=== PATIENT | male | born 1990 | race American Indian/Alaskan Native ===

== ENCOUNTER 2020-08-23 11:13 | Emergency (ER) | payer SELFPAY ==
[2020-08-23] MEDS ORDERED: TETRACAINE 0.5% OPHTH SOLN 4ML OU ONE (11:35)
[2020-08-23] MEDS ORDERED: BUTALB/ACETAMINOPHEN/CAFFEINE TAB PO ONE (11:35)
[2020-08-23] MEDS ORDERED: FLUORESCEIN 1 MG STRIP OP ONE (11:35)
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
--- NOTE | 2020-08-23 12:55 | Cat Scan Report ---
CT head/brain wo con INDICATION / CLINICAL INFORMATION: 30 years Male; head injury. TECHNIQUE: Routine CT head without contrast. All CT scans at this location are performed using CT dos e reduction for ALARA by means of automated exposure control. COMPARISON: None. FINDINGS: BRAIN / INTRACRANIAL CONTENTS: The brain proper, appears to demonstrate appropriate attenuation. The ventricular system is within normal limits in size and configuration. There is no CT evidence of acut e intracranial hemorrhage or significant mass effect. ORBITS: No significant abnormality of visualized orbits. SINUSES / MASTOIDS: There is scattered opacification and mucosal thickening within the ethmoid air ce lls. There is also mild to moderate opacification of the sphenoid sinuses with air-fluid levels. CRANIOCERVICAL JUNCTION: No significant abnormality. ADDITIONAL FINDINGS: None. IMPRESSION: 1. There is no CT evidence of acute intracranial process. 2. There is ethmoid and sphenoid sinus inflammatory disease as described. Signer Name: Jassi Moreno MD Signed: 08/23/2020 12:50 PM Workstation Name: [id number]
[2020-08-23 14:47] VITALS: BP 132/70
== END 2020-08-23 13:00 | disposition home or self-care (01) ==
LOC: ED 11:13
DX: S09.90XA Unspecified injury of head, initial encounter (principal); H57.89 Other specified disorders of eye and adnexa; Z79.899 Other long term (current) drug therapy; W22.8XXA Striking against or struck by other objects, initial encounter; Y93.89 Activity, other specified; Y92.89 Other specified places as the place of occurrence of the external cause; Y99.0 Civilian activity done for income or pay
CPT/HCPCS: 70450; 99283

== ENCOUNTER 2021-11-20 08:35 | Emergency (ER) | payer SELFPAY ==
[2021-11-20] MEDS ORDERED: SODIUM CHLORIDE 0.9% 1000 ML 1,000 ML IV ONE (09:07)
--- NOTE | 2021-11-20 09:29 | Emergency Department Report ---
ED Abdominal Pain HPI - General Chief Complaint: Abdominal Pain Stated Complaint: POSSIBLE KIDNEY STONES Time Seen by Provider: 11/20/21 09:04 Source: patient, EMS Mode of arrival: Ambulatory Limitations: No Limitations - History of Present Illness Initial Comments: 31-year-old black male with past medical history of kidney stones presents to the emergency department for evaluation of right flank pain that radiates down to his right lower quadrant that started last night. He states that pain was 10 out of 10 and associated with some nausea and vomiting. He denies fever, dysuria, diarrhea, and penile discharge. He states that pain feels similar to the pain he had last year when he had a kidney stone. MD Complaint: abdominal pain, flank pain -: Sudden, Last night Location: R flank Radiation: RLQ Migration to: no migration Severity scale (0 -10): 8 Quality: aching Consistency: intermittent Improves With: medication Worsens With: other (Urination) Associated Symptoms: nausea, vomiting, dysuria. denies: diarrhea, fever, chills, hematemesis, hematochezia, melena, hematuria, anorexia, syncope - Related Data Previous Rx's Medication Instructions Recorded Last Taken Type Butalb/Acetaminophen/Caffeine 1 cap PO Q8HR PRN #12 cap 08/23/20 Unknown Rx [Fioricet 50-300-40 mg CAP] Erythromycin [Erythromycin Ophth 1 applicatio OD QID 7 Days #1 tube 08/23/20 Unknown Rx Oint] Acetaminophen/Codeine [Tylenol 1 tab PO Q6H PRN #12 tab 11/20/21 Unknown Rx /Codeine # 3 tab] Ketorolac [Toradol] 10 mg PO Q6H PRN #12 tab 11/20/21 Unknown Rx Ondansetron [Zofran Odt] 4 mg PO Q8HR PRN #12 tab.rapdis 11/20/21 Unknown Rx Tamsulosin [Flomax] 0.4 mg PO QPM #15 cap 11/20/21 Unknown Rx cephALEXin [Keflex] 500 mg PO BID #14 cap 11/20/21 Unknown Rx Allergies Allergy/AdvReac Type Severity Reaction Status Date / Time No Known Allergies Allergy Unverified 08/23/20 11:29 ED Review of Systems ROS: Stated complaint: POSSIBLE KIDNEY STONES Other details as noted in HPI Comment: All other systems reviewed and negative Constitutional: denies: chills, fever, weakness ENT: denies: congestion Respiratory: denies: orthopnea, shortness of breath, SOB with exertion, SOB at rest, stridor, wheezing Cardiovascular: denies: chest pain, palpitations, dyspnea on exertion, orthopnea, edema, syncope, paroxysmal nocturnal dyspnea Gastrointestinal: abdominal pain, nausea, vomiting. denies: diarrhea, hematemesis, melena Genitourinary: dysuria. denies: urgency, frequency, hematuria, discharge, testicular pain Musculoskeletal: back pain Skin: denies: rash, lesions ED Past Medical Hx - Past Medical History Previous Medical History?: Yes Hx Hypertension: Yes - Surgical History Past Surgical History?: No - Social History Smoking Status: Never Smoker Substance Use Type: None - Medications Home Medications: Home Medications Medication Instructions Recorded Confirmed Last Taken Type Butalb/Acetaminophen/Caffeine 1 cap PO Q8HR PRN #12 cap 08/23/20 Unknown Rx [Fioricet 50-300-40 mg CAP] Erythromycin [Erythromycin Ophth 1 applicatio OD QID 7 Days #1 tube 08/23/20 Unknown Rx Oint] Acetaminophen/Codeine [Tylenol 1 tab PO Q6H PRN #12 tab 11/20/21 Unknown Rx /Codeine # 3 tab] Ketorolac [Toradol] 10 mg PO Q6H PRN #12 tab 11/20/21 Unknown Rx Ondansetron [Zofran Odt] 4 mg PO Q8HR PRN #12 tab.rapdis 11/20/21 Unknown Rx Tamsulosin [Flomax] 0.4 mg PO QPM #15 cap 11/20/21 Unknown Rx cephALEXin [Keflex] 500 mg PO BID #14 cap 11/20/21 Unknown Rx ED Physical Exam - General Limitations: No Limitations General appearance: alert, in no apparent distress - Head Head exam: Present: atraumatic, normocephalic - Eye Eye exam: Present: normal appearance. Absent: conjunctival injection - Neck Neck exam: Present: normal inspection, full ROM. Absent: tenderness, lymphadenopathy - Respiratory Respiratory exam: Present: normal lung sounds bilaterally. Absent: respiratory distress, wheezes, rales, rhonchi, stridor, chest wall tenderness - Cardiovascular Cardiovascular Exam: Present: regular rate, normal heart sounds - GI/Abdominal GI/Abdominal exam: Present: soft, tenderness (Right lower quadrant), normal nima wel sounds. Absent: distended, guarding, rebound, rigid - Extremities Exam Extremities exam: Present: normal inspection, normal capillary refill. Absent: pedal edema, joint swelling, calf tenderness - Back Exam Back exam: Present: normal inspection, tenderness (Right lower), CVA tenderness (R). Absent: vertebral tenderness - Neurological Exam Neurological exam: Present: alert, oriented X3, normal gait - Psychiatric Psychiatric exam: Present: normal affect, normal mood - Skin Skin exam: Present: warm, dry, intact, normal color ED Course Vital Signs 11/20/21 08:38 Temperature 98.7 F Pulse Rate 72 Respiratory 18 Rate Blood Pressure 180/80 O2 Sat by Pulse 99 Oximetry ED Medical Decision Making - Lab Data Result diagrams: 11/20/21 Unknown 11/20/21 Unknown - Radiology Data Radiology results: report reviewed, image reviewed CT abdomen and pelvis without contrast: FINDINGS: LOWER CHEST: No significant abnormality. LIVER: No significant abnormality. GALLBLADDER: No significant abnormality. BILE DUCTS: No significant abnormality. PANCREAS: No significant abnormality. SPLEEN: No significant abnormality. ADRENALS: No significant abnormality. RIGHT KIDNEY / URETER: 3 mm stone at the right ureterovesical junction with mild right hydroureteronephrosis and perinephric stranding. 2 mm nonobstructing stone in the lower pole. LEFT KIDNEY / URETER: 2 mm nonobstructing stone in the mid kidney. No ureteral stone or hydronephrosis. STOMACH / SMALL BOWEL: No significant abnormality. COLON: No significant abnormality. APPENDIX: No significant abnormality. PERITONEUM: No free fluid. No free air. No fluid collection. LYMPH NODES: No significant adenopathy. AORTA / ARTERIES: No significant abnormality. IVC / VEINS: No significant abnormality. URINARY BLADDER: No significant abnormality. REPRODUCTIVE ORGANS: No significant abnormality. ADDITIONAL FINDINGS: None. SKELETAL SYSTEM: No significant abnormality. IMPRESSION: 1. 3 mm stone at the right ureterovesical junction with mild right hydroureteronephrosis. 2. Bilateral nephrolithiasis. - Medical Decision Making 31-year-old black male with past medical history of kidney stones presents to the emergency department for evaluation of right flank pain that radiates down to his right lower quadrant that started last night. He states that pain was 10 out of 10 and associated with some nausea and vomiting. He denies fever, dysuria, diarrhea, and penile discharge. He states that pain feels similar to the pain he had last year when he had a kidney stone. Physical exam unremarkable. Labs positive for elevated LFTs, but acute hepatitis panel and lipase within normal limits. CT positive for kidney stones bilaterally including 3 mm stone to the right UVJ with mild right hydroureteronephrosis. Patient will be discharged home with pain medications, Keflex, Zofran, and Flomax to use as directed. He is advised to follow-up with urology for management of kidney stones and GI for further evaluation and management of elevated LFTs. Patient denies use of EtOH. He is advised to return to the emergency department as needed. He verbalizes understanding of and agreement with plan of care. Critical care attestation.: If time is entered above; I have spent that time in minutes in the direct care of this critically ill patient, excluding procedure time. ED Disposition Clinical Impression: Kidney stone on right side, Elevated LFTs Disposition: 01 HOME / SELF CARE / HOMELESS Is pt being admited?: No Does the pt Need Aspirin: No Condition: Stable Instructions: Renal Colic, [id number], Kidney Stones, [id number], Dietary Guidelines to Help Prevent Kidney Stones Additional Instructions: Take medications as prescribed. Increase intake of noncaffeinated fluids. Follow-up with urology for kidney stones. Your liver enzymes were noted to be high, follow-up with coffee bar attendant or GI doctor for further evaluation and management. Return to the emergency department for any concerning symptoms. Prescriptions: Tamsulosin [Flomax] 0.4 mg PO QPM #15 cap cephALEXin [Keflex] 500 mg PO BID #14 cap Ketorolac [Toradol] 10 mg PO Q6H PRN #12 tab PRN Reason: Pain Acetaminophen/Codeine [Tylenol /Codeine # 3 tab] 1 tab PO Q6H PRN #12 tab PRN Reason: Pain , Severe (7-10) Ondansetron [Zofran Odt] 4 mg PO Q8HR PRN #12 tab.rapdis PRN Reason: Nausea And Vomiting Referrals: PRIMARY CARE, [Primary Care Provider] - 3-5 Days DOROTHY MICHAUD MD [Staff Physician] - 3-5 Days TREY GALLO MD [Staff Physician] - 3-5 Days Forms: Work/School Release Form(ED) Time of Disposition: 14:43
[2021-11-20 10:57] LABS: Hematocrit 40.3 % (35.5-45.6); Hemoglobin 13.9 gm/dl (11.8-15.2); Mean Corpuscular HGB Conc 34 % (32-34); Mean Corpuscular Volume 82 fl (84-94); Platelet Count 183 K/mm3 (140-440); Red Cell Distribution Width 13.4 % (13.2-15.2)
[2021-11-20 11:11] LABS: Alanine Aminotransferase 130 units/L (7-56); BUN/Creatinine Ratio 11; Blood Urea Nitrogen 17 mg/dL (9-20); Calcium 7.9 mg/dL (8.4-10.2); Hemolysis Index 9
--- NOTE | 2021-11-20 11:52 | Cat Scan Report ---
CT ABDOMEN AND PELVIS WITHOUT CONTRAST INDICATION / CLINICAL INFORMATION: right flank pain. TECHNIQUE: Axial CT images were obtained through the abdomen and pelvis without IV contrast. All CT scans at this location are performed using CT dose reduction for ALARA by means of automated exposure control. COMPARISON: None available. FINDINGS: LOWER CHEST: No significant abnormality. LIVER: No significant abnormality. GALLBLADDER: No significant abnormality. BILE DUCTS: No significant abnormality. PANCREAS: No significant abnormality. SPLEEN: No significant abnormality. ADRENALS: No significant abnormality. RIGHT KIDNEY / URETER: 3 mm stone at the right ureterovesical junction with mild right hydroureterone phrosis and perinephric stranding. 2 mm nonobstructing stone in the lower pole. LEFT KIDNEY / URETER: 2 mm nonobstructing stone in the mid kidney. No ureteral stone or hydronephrosi s. STOMACH / SMALL BOWEL: No significant abnormality. COLON: No significant abnormality. APPENDIX: No significant abnormality. PERITONEUM: No free fluid. No free air. No fluid collection. LYMPH NODES: No significant adenopathy. AORTA / ARTERIES: No significant abnormality. IVC / VEINS: No significant abnormality. URINARY BLADDER: No significant abnormality. REPRODUCTIVE ORGANS: No significant abnormality. ADDITIONAL FINDINGS: None. SKELETAL SYSTEM: No significant abnormality. IMPRESSION: 1. 3 mm stone at the right ureterovesical junction with mild right hydroureteronephrosis. 2. Bilateral nephrolithiasis. Signer Name: Steph Trejo MD Signed: 11/20/2021 11:47 AM Workstation Name: [id number]
[2021-11-20 13:23] LABS: Color,Urine Yellow (Yellow)
[2021-11-20 13:24] LABS: Bilirubin,Urine Negative (Negative); Blood,Urine Negative (Negative)
[2021-11-20 13:25] LABS: Mucus,Urine 3+ /HPF; Protein,Urine <15 mg/dL mg/dL (Negative)
[2021-11-20 13:26] LABS: Renal Epithelial Cells,Urine <1 /LPF
[2021-11-20 14:22] LABS: Hepatitis B Surface Antigen Non-Reactive (Negative); Hepatitis C Virus Antibody Non-Reactive (NonReactive)
[2021-11-20 15:16] VITALS: BP 160/90
[2021-11-20] MEDS ORDERED: oxyCODONE /ACETAMINOPHEN 5-325MG TAB PO ONE (15:22)
[2021-11-20] MEDS ORDERED: KETOROLAC 10 MG TAB PO ONE (15:22)
== END 2021-11-20 15:15 | disposition home or self-care (01) ==
LOC: ED 08:35
DX: N20.0 Calculus of kidney (principal); R74.01 Elevation of levels of liver transaminase levels; I10 Essential (primary) hypertension; Z79.899 Other long term (current) drug therapy
CPT/HCPCS: 36415; 74176; 80053; 80074; 81001; 83690; 85027; 96360; 99284